=== PATIENT | female | born 1990 | race Asian ===

== ENCOUNTER 2021-11-14 08:45 | Emergency (ER) | payer OTHER ==
[~2021-11-14] VITALS: Ht 149.9 cm; Wt 43.6 kg
[2021-11-14 12:18] VITALS: BP 112/64
== END 2021-11-14 12:47 | disposition home or self-care (01) ==
LOC: M ED 08:45
DX: U07.1 COVID-19 (principal)

== ENCOUNTER 2022-05-14 10:30 | Emergency (ER) | payer OTHER ==
[~2022-05-14] VITALS: Ht 152.4 cm; Wt 45.7 kg
[2022-05-14] MEDS ORDERED: ONDA4TAB6 PO (15:14)
[2022-05-14] MEDS ORDERED: BENZ200C70 PO (15:14)
[2022-05-14 15:21] VITALS: BP 122/68
== END 2022-05-14 15:31 | disposition home or self-care (01) ==
LOC: M ED 10:30
DX: U07.1 COVID-19 (principal); B34.8 Other viral infections of unspecified site